=== PATIENT | male | born 1950 | race Caucasian/White ===

== ENCOUNTER 2018-03-06 09:01 | Day surgery (SDC) | payer BC, MEDICARE ==
[~2018-03-06] VITALS: Ht 177.8 cm; Wt 104.5 kg
--- NOTE | ~2018-03-06 | OP ---
PATIENT NAME: NESSA EDWARDS MEDICAL RECORD: [id number] :48 LOCATION:[place] ADMISSION DATE: SURGEON: DIANE AGUERO DO DATE OF OPERATION: 03/06/2018 PROCEDURE: Colonoscopy with polypectomy. INDICATIONS FOR PROCEDURE: Occult blood in stools, lower abdominal pain. SCOPE: [employer] video pediatric colonoscope. MEDICATIONS: Propofol 260 mg IV per anesthesia. WITHDRAWAL TIME: 9 minutes. ESTIMATED BLOOD LOSS: Minimal. COMPLICATIONS: None. FINDINGS: Informed consent was given. The patient was made comfortable with the above medication. After reaching an adequate level of sedation by slow IV push, the patient was placed on his left side. A digital rectal examination was performed and was normal other than an enlarged prostate. The endoscope was then advanced under direct visualization through the rectum to the cecum, confirmed by the presence of the appendiceal orifice and ileocecal valve. The endoscope was slowly withdrawn and the mucosa was carefully examined. The prep quality was excellent. During this procedure, there were scattered diverticula throughout the colon with the strongest focus being in the sigmoid and distal descending colon. There was no evidence of diverticulitis. There were 3 polyps visualized on today's examination. Two were located in the transverse colon. They were both benign appearing and sessile and ranged in size from 3-5 mm in diameter. They were both removed using hot forceps. There was a third polyp located in the descending colon, which was benign appearing and sessile and measured approximately 4 mm in diameter. It was removed using hot forceps. Retroflexion was performed in the rectum with visualization of grade I to II internal hemorrhoids without bleeding. The endoscope was then unretroflexed and withdrawn from the patient. The patient tolerated the procedure well and there were no complications. IMPRESSION: 1. Mild to moderate diverticulosis of the distal descending and sigmoid colon with a few scattered diverticula throughout the remainder of the colon. 2. Three benign appearing sessile polyps as described above, removed using hot forceps. 3. Internal hemorrhoids without bleeding. PLAN AND RECOMMENDATIONS: 1. Discharge home when recovery parameters are met. 2. Follow up biopsy specimen results. 3. High fiber diet. 4. Continue current medications. 5. Recall colonoscopy in 5 years for continued surveillance based on the personal history of polyps and family history of colon cancer. TRANSINT:[id number] Voice Confirmation ID: [id number] DOCUMENT ID: [id number] OPERATIVE REPORT [id number] NESSA EDWARDS,DIANE Lomax DO at 1403 CC: [id number] DICTATION DATE: 03/06/18 1053 UNDERBASTER: 03/06/18 1146 [facility] 03/06/18 [place] [id number] [place] [id number]
[2018-03-06 09:21] LABS: HEMATOCRIT 42.7 % (42.0-54.0); HEMOGLOBIN 13.7 g/dL (13.5-17.5); MCH 28.7 pg (26.0-34.0); MCHC 32.1 g/dL (31.0-37.0); MCV 89.3 fL (80.0-100.0); RBC 4.78 10x6/uL (4.20-6.10); RDW 15.7 % (11.5-14.5); WBC 7.9 10x3/uL (4.8-10.8)
[2018-03-06] MEDS ORDERED: NORVASC5 MG PO (09:38)
[2018-03-06] MEDS ORDERED: ZYLOPRIM300 MG PO (09:38)
[2018-03-06] MEDS ORDERED: LIPITOR20 MG PO (09:39)
[2018-03-06] MEDS ORDERED: LEXAPRO10 MG (09:40)
[2018-03-06] MEDS ORDERED: NEURONTIN600 MG PO (09:40)
[2018-03-06] MEDS ORDERED: NORMODYNE / TR200 MG PO (09:41)
[2018-03-06] MEDS ORDERED: PROTONIX40 MG PO (09:42)
[2018-03-06] MEDS ORDERED: FLOMAX0.4 MG PO (09:43)
[2018-03-06] MEDS ORDERED: XARELTO20 MG PO (09:43)
[2018-03-06] MEDS ORDERED: LOVENOX40 MG/0.4 SC (09:44)
[2018-03-06 10:05] VITALS: BP 146/85; Ht 177.8 cm; Wt 104.5 kg
== END 2018-03-06 11:48 | disposition home or self-care (01) ==
LOC: D.OPS 09:01
PROVIDERS: Anesthesiology
DX: D12.4 Benign neoplasm of descending colon (principal); D12.3 Benign neoplasm of transverse colon; K57.30 Diverticulosis of large intestine without perforation or abscess without bleeding; K64.1 Second degree hemorrhoids; Z01.812 Encounter for preprocedural laboratory examination

== ENCOUNTER → 2019-01-16 08:32 | Outpatient (CLI) | payer BC, MEDICARE ==
[2018-03-06 10:05] VITALS: BMI 33.0
[~2019-01-16 08:32] MED LIST: FLOMAX0.4 MG PO; LEXAPRO10 MG; LIPITOR20 MG PO; LOVENOX40 MG/0.4 SC; NEURONTIN600 MG PO; NORMODYNE / TR200 MG PO; NORVASC5 MG PO; PROTONIX40 MG PO; XARELTO20 MG PO; ZYLOPRIM300 MG PO
== END | disposition home or self-care (01) ==
LOC: D.HCCARDIO 08:32
PROVIDERS: ATTEND Internal Medicine Cardiovascular Disease
DX: I20.9 Angina pectoris, unspecified (principal)